=== PATIENT | male | born 1970 | race Caucasian/White ===

== ENCOUNTER 2024-02-24 09:31 | Emergency (ER) | payer MEDICARE, SELFPAY ==
[2024-02-24 09:33] VITALS: BP 170/100
--- NOTE | 2024-02-24 10:03 | EDRN ---
Khris Mccormick w/ pt at this time.
--- NOTE | 2024-02-24 10:08 | ED.GENMED ---
History of Present Illness
General
Chief Complaint: Dental Problem
Source: patient
Time Seen by Provider: 02/24/24 09:41
History of Present Illness
History of Present Illness:
53yoM with no significant past medical history presenting for evaluation of dental pain. He reports pain in his right upper posterior molar for the past 2 days. The pain was making it difficult for him to sleep last night. He has been using aspirin
with temporary relief. He admits to getting food stuck in that molar frequently. He has not seen a dentist in many years. No fevers, chills, facial swelling, dysphagia.
Phy Exam
General Physical Exam
General Presentation: well appearing and no apparent distress
General age: appears stated age
General Skin: warm and dry
General Habitus: normal
General Mental: alert
ENT Exam
ENT Exam: TM's normal, neck supple, normocephalic and other (Dental caries noted throughout. No periapical abscess or facial swelling noted. No elevation of floor of mouth.)
Pulmonary Exam
Pulmonary Exam: no respiratory distress
Neurological Exam
Neurological Exam: alert
[place] Coma Scale
Eye Opening: Spontaneous
Verbal Response: Oriented
Motor Response: Obeys Commands
GCS Total Score: 15
Skin Exam
Skin Exam: normal color and warm/dry
Psychiatric Exam
Psychiatric Exam: normal mood/affect
Course
Vital Signs
Initial and Last Documented VS:
Initial Vital Signs
Temp Pulse Resp BP Pulse Ox
98.2 F 85 16 170/100 98
02/24/24 09:33 02/24/24 09:33 02/24/24 09:33 02/24/24 09:33 02/24/24 09:33
Last Documented Vital Signs
Temp Pulse Resp BP Pulse Ox
98.2 F 73 16 165/106 99
02/24/24 09:33 02/24/24 10:20 02/24/24 10:20 02/24/24 10:20 02/24/24 10:20
MDM/Problems Addressed
Differential Diagnosis Includes:
53yoM here with dental pain x 2 days. C/o pain in R upper posterior molar. No f/c. Vitals normal other than hypertension. Dental caries noted on exam. No clinical evidence of facial cellulitis, dental abscess, or Alek's.
Patient started on a course of Augmentin. Supportive care discussed including PRN Tylenol/ibuprofen. Stressed the importance of outpatient f/u with a dentist. ED return precautions discussed. He was discharged in stable condition.
*Critical Care Note
Total Time (30-74mins, 75-104mins- exclusive of procedures): Not Applicable
ED Attending Note
-
Portions of this chart may have been created with voice recognition software.� Occasional wrong word or��sound alike� substitutions may have occurred due to the inherent limitations of voice recognition software.
Discharge Plan
Departure
Patient Disposition: Home (Routine Discharge)
Date of Disposition: 02/24/24
Time of Disposition: 10:12
Patient with high blood pressure during this ER visit?: Yes
Discharge Problem:
Dentalgia
Instructions: Dental Pain (DC)
Prescriptions:
New
amoxicillin-pot clavulanate 875-125 mg tablet
1 tab PO BID Qty: 14 0RF
Activity Restrictions/Additional Instructions:
Take antibiotics as prescribed. Take Tylenol 650mg and ibuprofen 600mg every 6 hours as needed for pain.
Please call on Sunday to schedule a follow-up with a dentist. Return to the ER with any worsening symptoms or fevers.
Reduced-Fee Dental Clinics
[facility]: [phone] call for appt. No walk ins
[facility]:
[facility]: [phone]
[facility] [phone]
[facility]: . No walk ins
[facility]: [phone]
[facility]: [phone]
[facility]: 1-
[facility]: [phone]
[facility] [place] [facility]: [phone]
Pending Sale To [facility], Free for uninsured
[facility]: [phone]
[facility] ex [phone], [place] [address]
[facility]:
[facility]:
Interventions
Interventions:
*Risk Screen - Suicide Last Done: 02/24/24 10:10
*General Assessment Last Done: 02/24/24 10:10
*Neglect/Abuse Screening Last Done: 02/24/24 10:10
ED- Fall Risk Assessment Last Done: 02/24/24 10:10
*ED COVID-19 Vaccine History Last Done: 02/24/24 10:10
Discharge Date and Time
Print Language: FAROESE
[2024-02-24 10:12] VITALS: BMI 26.5
[2024-02-24 10:20] VITALS: BP 165/106
== END 2024-02-24 10:25 | disposition home or self-care (01) ==
LOC: EMR 09:31
PROVIDERS: EMERGENCY PHYSICIAN Student in an Organized Health Care Education/Training Program; FAMILY PHYSICIAN Internal Medicine Infectious Disease
DX: K08.89 Other specified disorders of teeth and supporting structures (principal); K02.9 Dental caries, unspecified; R03.0 Elevated blood-pressure reading, without diagnosis of hypertension
CPT/HCPCS: 99283

== ENCOUNTER 2024-02-27 09:57 | Emergency (ER) | payer MEDICARE, SELFPAY ==
[2024-02-27 10:00] VITALS: BP 175/109
--- NOTE | 2024-02-27 11:43 | ED.GENMED ---
History of Present Illness
General
Chief Complaint: Dental Problem
Source: patient
Exam Limitations: none
Time Seen by Provider: 02/27/24 10:48
Nursing documentation reviewed up to this point in time: agreed with
History of Present Illness
History of Present Illness:
53-year-old male presenting to the emergency department today with concerns of an abscess in his mouth noticed over the past 24 hours. Here recently for 4 days ago was started on Augmentin and has been taking this as prescribed. Denies any fever
shortness of breath has been able to tolerate by mouth.
Review of Systems
Review of Systems
Allergies reviewed?: Yes
All Other Systems: ROS reviewed and negative except as documented in HPI and ROS
Phy Exam
Physical Exam
Physical Exam:
GENERAL: Alert , in no apparent distress
EYE: pupils equal and reactive
NECK: Supple, no significant adenopathy.
ENT: 1 cm in diameter area of swelling with whitish color to the central fluctuance and induration to the right sided mandibular roof of the mouth o/p clr, mmm.
CARDIAC: Regular rate and rhythm .
LUNGS: Clear breath sounds bilaterally, no acute respiratory distress, no wheezes/rales/rhonchi
ABDOMEN: Soft, without focal tenderness, no r/g, no cvat
NEUROLOGICAL: Alert and oriented, no focal neuro deficits
SKIN: Warm and dry, skin intact.
MUSCULOSKELETAL: No edema, well perfused.
PSYCH: Normal and appropriate interaction.
Course
Orders/Labs/Results
Orders:
Orders
02/27/24 11:42
Clindamycin HCl [Cleocin] 450 mg PO NOW STA
Ketorolac [Toradol] 30 mg IM NOW STA
Vital Signs
Initial and Last Documented VS:
Initial Vital Signs
Temp Pulse Resp BP Pulse Ox
97.5 F 87 16 175/109 99
02/27/24 10:00 02/27/24 10:00 02/27/24 10:00 02/27/24 10:00 02/27/24 10:00
Last Documented Vital Signs
Temp Pulse Resp BP Pulse Ox
97.5 F 87 16 175/109 99
02/27/24 10:00 02/27/24 10:00 02/27/24 10:00 02/27/24 10:00 02/27/24 10:00
Procedures
Incision/Drainage/Joint Aspiration
Right-sided roof of the mouth:
Anethesia: 1% Lidocaine
Type of procedure: incise and drain
Nature of site: abscess
Description of abscess: less than 3cm
Loculations broken up: Yes
How much fluid was obtained?: small amount
Fluid description: purulent
Treatment: left open for drainage
MDM/Problems Addressed
MDM/Problems Addressed:
53-year-old male presenting to the emergency department with a small abscess to the roof of his mouth. Treated for dental infection over the past 4 days with Augmentin. Here this was anesthetized and then drained with a stab incision. He was
advised for close dental follow-up and otherwise stable here. Will switch to clindamycin and will follow-up closely.
*Critical Care Note
Total Time (30-74mins, 75-104mins- exclusive of procedures): Not Applicable
ED Attending Note
-
Portions of this chart may have been created with voice recognition software.� Occasional wrong word or��sound alike� substitutions may have occurred due to the inherent limitations of voice recognition software.
Discharge Plan
Departure
Patient Disposition: Home (Routine Discharge)
Date of Disposition: 02/27/24
Time of Disposition: 11:45
Patient with high blood pressure during this ER visit?: No
Condition: Good
Covid-19: Not Applicable
Discharge Problem:
Abscess, dental
Instructions: Tooth Abscess (DC)
Prescriptions:
New
clindamycin HCl 300 mg capsule
300 mg PO Q6H 7 Days Qty: 28 0RF
oxycodone-acetaminophen [Percocet] 5-325 mg tablet
1 tab PO Q8H PRN (Reason: Pain) Qty: 5 0RF
No Action
amoxicillin-pot clavulanate 875-125 mg tablet
1 tab PO BID Qty: 14 0RF
Referrals:
NONE,* [Family Provider] -
Activity Restrictions/Additional Instructions:
You came to the emergency department today with concerns of a dental abscess. Here this was drained. Please use warm compress to the area and otherwise take your prescribed antibiotic. You can also take the pain medication as needed. Please do
not drive or operate machinery while taking this medication, this can cause drowsiness. Please follow-up closely with your dentist for further management. Return to the emergency department for any worsening, new or concerning symptoms.
Interventions
Interventions:
*Risk Screen - Suicide Last Done: 02/27/24 10:03
*Neglect/Abuse Screening Last Done: 02/27/24 10:03
ED- Fall Risk Assessment Last Done: 02/27/24 11:10
Discharge Date and Time
Print Language: NEPALI
[2024-02-27] MEDS: CLEOCIN 450 MG PO (11:47)
[2024-02-27] MEDS: TORADOL 30 MG IM (11:47)
[2024-02-27 12:00] VITALS: BP 168/95
== END 2024-02-27 12:00 | disposition home or self-care (01) ==
LOC: EMR 09:57
PROVIDERS: EMERGENCY PHYSICIAN Student in an Organized Health Care Education/Training Program
DX: K04.7 Periapical abscess without sinus (principal)
CPT/HCPCS: 41800; 96372; 99284